=== PATIENT | male | born 1990 | race Caucasian/White ===

== ENCOUNTER 2017-11-11 09:00 | Emergency (ER) | payer SELFPAY ==
[~2017-11-11] VITALS: Ht 180.3 cm; Wt 114.7 kg
[~2017-11-11 09:00] MED LIST: DIVALPROEX SOD500 MG PO; LEXAPRO10 MG PO; OLANZAPINE10 MG PO; ZOLPIDEM TARTRAT5 MG PO
[2017-11-11] MEDS ORDERED: AUGMENTIN875 MG PO (10:49)
[2017-11-11 13:05] VITALS: BP 128/83
== END 2017-11-11 13:05 | disposition home or self-care (01) ==
LOC: EME 09:00
DX: S61.257A Open bite of left little finger without damage to nail, initial encounter (principal); W54.0XXA Bitten by dog, initial encounter; Z23 Encounter for immunization; Z20.3 Contact with and (suspected) exposure to rabies; Z29.14 Encounter for prophylactic rabies immune globulin
CPT/HCPCS: 73140; 99281; 99284

== ENCOUNTER 2017-11-14 17:28 | Emergency (ER) | payer SELFPAY ==
[~2017-11-14] VITALS: Ht 180.3 cm; Wt 115.8 kg
[~2017-11-14 17:28] MED LIST changes: +AUGMENTIN875 MG PO
[2017-11-14 17:31] VITALS: BP 99/75
== END 2017-11-14 19:20 | disposition home or self-care (01) ==
LOC: EME 17:28
PROC: 3E0234Z Introduction of Serum, Toxoid and Vaccine into Muscle, Percutaneous Approach (ICD-10-PCS; principal; 2017-11-14)
DX: Z20.3 Contact with and (suspected) exposure to rabies (principal); Z23 Encounter for immunization
CPT/HCPCS: 99281; 99284